=== PATIENT | male | born 1985 | race African-American/Black ===

== ENCOUNTER 2020-10-10 12:27 | Emergency (ER) | payer SELFPAY ==
[~2020-10-10] VITALS: Ht 188 cm; Wt 108.9 kg
[2020-10-10 12:41] VITALS: BP 171/103
== END 2020-10-10 13:03 | disposition left against medical advice (07) ==
LOC: ER 12:27
DX: R11.2 Nausea with vomiting, unspecified (principal); Z53.21 Procedure and treatment not carried out due to patient leaving prior to being seen by health care provider

== ENCOUNTER 2020-10-12 23:02 | Inpatient (IN) | payer MEDICAID, OTHER, SELFPAY ==
[~2020-10-12] VITALS: Ht 190.5 cm; Wt 104.2 kg
[2020-10-13 00:10] LABS: Red Cell Distribution Width 14.4 % (11.8-14.3)
[2020-10-13 00:11] LABS: Hematocrit 54.8 % (41.0-53.0); Hemoglobin 17.1 g/dL (13.5-17.5); Mean Corpuscular Hemoglobin 26.8 pg (28.0-32.0); Mean Corpuscular Hgb Conc. 31.1 g/dL (32.0-36.0); Red Blood Cells 6.38 10^6/uL (4.5-5.90)
[2020-10-13 00:18] LABS: Basophils % (manual) 0 (0.0-2.0); Blast Cells 0; Eosinophils % (manual) 0 (0-7); Metamyelocytes % 0; Myelocytes % 0; Promyelocytes % 0; Reactive Lymphocytes 0
[2020-10-13 00:26] LABS: INR 1.05 (0.9-1.15); Partial Thromboplastin Time 25.2 sec (23.6-33.0)
[2020-10-13] MEDS ORDERED: SODIUM CHLORIDE 0.9% 1,000 ML IV ONE (00:30)
[2020-10-13 00:37] LABS: Calcium 9.2 mg/dL (8.5-10.1)
[2020-10-13 00:39] LABS: Bilirubin, Total 0.4 mg/dL (0.2-1.0); Total Protein 7.4 g/dL (6.4-8.2)
[2020-10-13 00:50] LABS: BUN/Creatinine Ratio 14.9
[2020-10-13] MEDS ORDERED: InsuLIN REG 1unit/0.01ml Soln (100units/ml) ONE (01:04)
[2020-10-13 01:09] LABS: Band Neutrophils % (manual) 21; Lymphocytes % (manual) 8 (10.0-50.0); Monocytes % (manual) 10 (0-12)
[2020-10-13 01:13] LABS: Albumin 1.1 g/dL (3.4-5.0)
[2020-10-13] MEDS ORDERED: InsuLIN REG 1unit/0.01ml Soln (100units/ml) IV ONE (01:15)
[2020-10-13] MEDS ORDERED: INSULIN LANTUS (GLARGINE) 1 /0.01ml (100units/ml) SC ONE (01:30)
[2020-10-13] MEDS: ACCU-CHEK COMFORT CURVE STRIP VI SCH ×14 (01:30→22:30)
[2020-10-13] MEDS ORDERED: DEXTROSE (50%) 50ML SYRG IV PRN (01:30)
[2020-10-13] MEDS: InsuLIN R (HUMAN) 100 UNITS in SODIUM CHL 0.9% 99 ML IV SCH (01:30)
[2020-10-13 01:44] LABS: Anion Gap 29 (5-15); Blood Urea Nitrogen 47 mg/dL (7-18); Calcium 8.7 mg/dL (8.5-10.1); Chloride 114 mmol/L (98-107); GFR African American 29 mL/min; GFR Non-African American 24 mL/min; Potassium 5.2 mmol/L (3.5-5.1); Sodium 150 mmol/L (136-145)
[2020-10-13 01:49] LABS: Lactic Acid w/Reflex 4.7 mmol/L (0.4-2.0)
[2020-10-13] MEDS: SODIUM CHLORIDE 0.9% 1,000 ML IV SCH ×2 (01:50→03:30)
[2020-10-13 02:05] LABS: Carbon Dioxide 7 mmol/L (21-32); Glucose 694 mg/dL (74-106)
[2020-10-13 04:54] LABS: Urine Bacteria NONE SEEN /hpf (None Seen); Urine Blood 3+ /uL (Negative); Urine Specific Gravity 1.022 (1.001-1.035); Urine WBC 3 /hpf (0 - 3)
[2020-10-13] MEDS ORDERED: SODIUM CHLORIDE 0.9% 1,000 ML IV SCH ×2 (05:30→07:30)
[2020-10-13 06:45] LABS: Calcium 8.8 mg/dL (8.5-10.1); Potassium 4.9 mmol/L (3.5-5.1)
[2020-10-13 06:50] LABS: BUN/Creatinine Ratio 16.4
[2020-10-13] MEDS ORDERED: LACTATED RINGER'S 1,000 ML IV ONE (07:00)
[2020-10-13] MEDS ORDERED: ACETAMINOPHEN 500 MG TAB PO PRN (07:00)
[2020-10-13] MEDS ORDERED: MORPHINE SULFATE INJECTION 2 MG/ML SYRG IV PRN (07:00)
[2020-10-13] MEDS ORDERED: SODIUM BICARBONATE 8.4 % INJ 50ML VIAL IV ONE (07:00)
[2020-10-13] MEDS ORDERED: SOD CHL 0.45% 1,000 ML IV SCH ×2 (07:00→17:00)
[2020-10-13] MEDS ORDERED: NITROGLYCERIN 0.4 MG SL TAB SL PRN (07:00)
[2020-10-13] MEDS ORDERED: ALBUTEROL SULF HFA 90MCG INH 200DOSE IN PRN (07:00)
[2020-10-13] MEDS ORDERED: ONDANSETRON HCL 4 MG/2 ML VIAL IV PRN (07:00)
[2020-10-13] MEDS ORDERED: ENOXAPARIN SOD 40 MG/0.4 ML SYRINGE SC SCH (10:00)
[2020-10-13] MEDS: ASCORBIC ACID 1,000 MG TAB PO SCH ×2 (11:30→12:26)
[2020-10-13] MEDS: cefTRIAXone 1GM/50ML D5W 50 ML IV SCH (11:30)
[2020-10-13] MEDS: DexAMETHasone SOD PHOS 10MG/1ML VIAL INJ IV SCH (11:30)
[2020-10-13] MEDS: ZINC SULFATE 220mg CAP or TAB PO SCH ×2 (11:30→12:25)
[2020-10-13] MEDS: ENOXAPARIN SOD 40 MG/0.4 ML SYRINGE SC SCH (11:30)
[2020-10-13] MEDS: CHOLECALCIFEROL (VITD3) 2,000 UNIT CAP/TAB PO SCH ×2 (11:30→12:27)
[2020-10-13] MEDS: AZITHROMYCIN 500MG/ 250ML 250 ML IV SCH (12:03)
[2020-10-13] MEDS: IVERMECTIN 3 MG TAB PO SCH (12:05)
[2020-10-13] MEDS ORDERED: LORazepam 2MG/ML-1ML VIAL IV PRN ×2 (14:00→17:00)
[2020-10-13 15:00] VITALS: BP 136/84
[2020-10-13 16:00] VITALS: BP 150/91
[2020-10-13 16:01] LABS: Alcohol, Urine < 3.0 mg/dL (0-10); Amphetamine Screen, Urine NEGATIVE (NEGATIVE); Barbiturate Scree,Urine NEGATIVE (NEGATIVE); Benzodiazephine Screen, Urine NEGATIVE (NEGATIVE); Cannabinoid Screen, Urine NEGATIVE (NEGATIVE); Cocaine Screen, Urine NEGATIVE (NEGATIVE); Opiate Scree,Urine NEGATIVE (NEGATIVE); Phencyclidine Screen, Urine NEGATIVE (NEGATIVE)
[2020-10-13] MEDS ORDERED: HALOPERIDOL LACTATE 5 MG/ML INJ VIAL ONE (16:56)
[2020-10-13 17:00] VITALS: BP 152/90
[2020-10-13] MEDS ORDERED: HALOPERIDOL LACTATE 5 MG/ML INJ VIAL IM ONE (17:00)
[2020-10-13] MEDS ORDERED: FUROSEMIDE 20 MG/2 ML VIAL IV ONE (17:30)
[2020-10-13] MEDS ORDERED: TOCILIZUMAB IV ONE (18:30)
[2020-10-13] MEDS ORDERED: SODIUM CHL 0.9% IV ONE (18:30)
[2020-10-13 19:24] LABS: BUN/Creatinine Ratio 15.5; Calcium 8.9 mg/dL (8.5-10.1); Potassium 3.9 mmol/L (3.5-5.1)
[2020-10-13] MEDS ORDERED: ETOMIDATE (2MG/ML) 20ML VIAL IV ONE ×3 (21:54→22:00)
[2020-10-13] MEDS ORDERED: PROPOFOL 100 ML IV ONE (21:54)
[2020-10-13] MEDS ORDERED: SUCCINYLCHOLINE CHLORIDE 20 MG/ML 10ML VIAL IV ONE ×3 (21:54→22:00)
[2020-10-13] MEDS ORDERED: fentaNYL Drip 2500mCg/250mlNS 250 ML IV ONE (21:55)
[2020-10-13 22:00] VITALS: BP 249/147
[2020-10-13] MEDS ORDERED: PROPOFOL 100 ML IV SCH (22:00)
[2020-10-13] MEDS ORDERED: MIDAZOLAM DRIP 50 mg/50mL 50 ML IV ONE (22:09)
[2020-10-13] MEDS: fentaNYL Drip 2500mCg/250mlNS 250 ML IV SCH (22:10)
[2020-10-13] MEDS: D5W 5% 1,000 ML IV SCH (22:57)
[2020-10-13] MEDS: MIDAZOLAM DRIP 50 mg/50mL 50 ML IV SCH (23:21)
[2020-10-14] VITALS (76 sets, daily range): BP systolic 79–249; BP diastolic 46–147
[2020-10-14] MEDS ORDERED: PHENYLEPHRINE IV 250 ML IV ONE (00:18)
[2020-10-14] MEDS: PHENYLEPHRINE IV 250 ML IV SCH ×3 (00:29→09:42)
[2020-10-14] MEDS: InsuLIN R (HUMAN) 100 UNITS in SODIUM CHL 0.9% 99 ML IV SCH (01:48)
[2020-10-14] MEDS: ACCU-CHEK COMFORT CURVE STRIP VI SCH ×10 (01:50→20:28)
[2020-10-14 02:29] LABS: BUN/Creatinine Ratio 13.7; Calcium 8.4 mg/dL (8.5-10.1); Potassium 4.1 mmol/L (3.5-5.1)
[2020-10-14 02:33] LABS: Bilirubin, Total 0.2 mg/dL (0.2-1.0); Total Protein 6.2 g/dL (6.4-8.2)
[2020-10-14 03:03] LABS: Albumin 0.7 g/dL (3.4-5.0)
[2020-10-14 04:33] LABS: Hematocrit 41.3 % (41.0-53.0); Hemoglobin 13.6 g/dL (13.5-17.5); Mean Corpuscular Hemoglobin 26.9 pg (28.0-32.0); Mean Corpuscular Hgb Conc. 32.9 g/dL (32.0-36.0); Mean Corpuscular Volume 81.6 fL (80.0-100.0); Red Blood Cells 5.06 10^6/uL (4.5-5.90); White Blood Cell 14.3 10^3/uL (4.4-10.8)
[2020-10-14 04:48] LABS: Calcium 8.4 mg/dL (8.5-10.1); Potassium 4.2 mmol/L (3.5-5.1)
[2020-10-14 04:52] LABS: Basophils % (manual) 0 (0.0-2.0); Blast Cells 0; Eosinophils % (manual) 0 (0-7); Metamyelocytes % 0; Promyelocytes % 0; Reactive Lymphocytes 0
[2020-10-14 04:55] LABS: BUN/Creatinine Ratio 12.5; Bilirubin, Total 0.2 mg/dL (0.2-1.0); Total Protein 6.2 g/dL (6.4-8.2)
[2020-10-14 05:29] LABS: Albumin 0.7 g/dL (3.4-5.0)
[2020-10-14 05:39] LABS: Band Neutrophils % (manual) 51; Lymphocytes % (manual) 10 (10.0-50.0); Monocytes % (manual) 3 (0-12); Myelocytes % 2
[2020-10-14] MEDS ORDERED: ALBUMIN 25% 100 ML IV ONE (05:45)
[2020-10-14] MEDS: MIDAZOLAM DRIP 50 mg/50mL 50 ML IV SCH ×4 (06:54→20:14)
[2020-10-14] MEDS ORDERED: INSULIN LANTUS (GLARGINE) 1 /0.01ml (100units/ml) SC SCH (10:00)
[2020-10-14] MEDS: D5W 5% 1,000 ML IV SCH (10:35)
[2020-10-14] MEDS ORDERED: SOD CHL 0.45% 1,000 ML IV SCH (10:45)
[2020-10-14] MEDS: cefTRIAXone 1GM/50ML D5W 50 ML IV SCH (10:56)
[2020-10-14] MEDS: DexAMETHasone SOD PHOS 10MG/1ML VIAL INJ IV SCH (10:59)
[2020-10-14] MEDS: fentaNYL Drip 2500mCg/250mlNS 250 ML IV SCH ×2 (11:15→23:04)
[2020-10-14] MEDS: AZITHROMYCIN 500MG/ 250ML 250 ML IV SCH (12:30)
[2020-10-14] MEDS ORDERED: INSULIN LANTUS (GLARGINE) 1 /0.01ml (100units/ml) SC ONE (12:45)
[2020-10-14] MEDS ORDERED: DEXTROSE (50%) 50ML SYRG IV PRN (12:45)
[2020-10-14] MEDS: InsuLIN REG 1unit/0.01ml Soln (100units/ml) SC SCH ×2 (15:58→20:29)
[2020-10-14] MEDS: DOPamine 1600MCG/ML D5W 250 ML IV SCH (17:00)
[2020-10-14 17:12] LABS: BUN/Creatinine Ratio 12.4; Calcium 8.3 mg/dL (8.5-10.1); Potassium 4.5 mmol/L (3.5-5.1)
[2020-10-14] MEDS: IVERMECTIN 3 MG TAB PO SCH (17:14)
[2020-10-14] MEDS: ENOXAPARIN SOD 40 MG/0.4 ML SYRINGE SC SCH (17:14)
[2020-10-14] MEDS: FREE WATER NG SCH ×2 (18:01→23:07)
[2020-10-14] MEDS: ALBUMIN 25% 100 ML IV SCH (18:34)
[2020-10-14 19:35] LABS: Alanine Aminotransferase 28 U/L (16-61); Albumin 1.5 g/dL (3.4-5.0); Anion Gap 9 (5-15); Aspartate Aminotransferase 54 U/L (15-37); BUN/Creatinine Ratio 12.5; Blood Urea Nitrogen 65 mg/dL (7-18); Calcium 7.6 mg/dL (8.5-10.1); Carbon Dioxide 16 mmol/L (21-32); Chloride 129 mmol/L (98-107); GFR African American 16 mL/min; GFR Non-African American 13 mL/min; Glucose 341 mg/dL (74-106); Potassium 4.7 mmol/L (3.5-5.1); Sodium 154 mmol/L (136-145)
[2020-10-14 19:38] LABS: Alkaline Phosphatase 83 U/L (45-117); Bilirubin, Total 0.2 mg/dL (0.2-1.0)
[2020-10-14] MEDS: SODIUM BICARBONATE 50ML VIAL 50 ML in D5W 5% 1,000 ML IV SCH (20:14)
[2020-10-14] MEDS: SODIUM CHLOR 0.9% PF (SALINE LOCK) 10ML VIAL/SYR IV SCH (23:07)
[2020-10-15] VITALS (100 sets, daily range): BP systolic 103–146; BP diastolic 66–92
[2020-10-15] MEDS: ACCU-CHEK COMFORT CURVE STRIP VI SCH ×9 (00:06→23:58)
[2020-10-15] MEDS: InsuLIN REG 1unit/0.01ml Soln (100units/ml) SC SCH ×5 (00:07→15:13)
[2020-10-15] MEDS ORDERED: DEXTROSE (50%) 50ML SYRG IV PRN ×2 (00:15→18:15)
[2020-10-15] MEDS: FREE WATER NG SCH ×6 (02:00→21:28)
[2020-10-15] MEDS: ALBUMIN 25% 100 ML IV SCH ×2 (02:00→10:30)
[2020-10-15 02:16] LABS: Basophils # (auto) 0.1 10 ^3/uL (0-0.2); Basophils % (auto) 0.7 % (0.0-2.0); Eosinophils # (auto) 0 10 ^3/uL (0-0.8); Hematocrit 38.5 % (41.0-53.0); Hemoglobin 12.7 g/dL (13.5-17.5); Lymphocytes # (auto) 0.5 10 ^3/uL (0.4-5.4); Lymphocytes % (auto) 4.7 % (10.0-50.0); Mean Corpuscular Hemoglobin 27.6 pg (28.0-32.0); Mean Corpuscular Volume 83.7 fL (80.0-100.0); Monocytes # (auto) 0.3 10 ^3/uL (0-1.3); Monocytes % (auto) 2.6 % (0.0-12.0); Neutrophils # (auto) 9.6 10 ^3/uL (1.6-8.6); Nucleated Red Blood Cells % 0.2 %; Red Blood Cells 4.59 10^6/uL (4.5-5.90); Red Cell Distribution Width 14.8 % (11.8-14.3); White Blood Cell 10.5 10^3/uL (4.4-10.8)
[2020-10-15 02:19] LABS: Potassium 5.2 mmol/L (3.5-5.1)
[2020-10-15 02:25] LABS: Albumin 1.7 g/dL (3.4-5.0); BUN/Creatinine Ratio 14.1; Bilirubin, Total 0.4 mg/dL (0.2-1.0); Calcium 6.9 mg/dL (8.5-10.1); Total Protein 5.8 g/dL (6.4-8.2)
[2020-10-15] MEDS: SODIUM BICARBONATE 50ML VIAL 50 ML in D5W 5% 1,000 ML IV SCH ×4 (04:47→21:30)
[2020-10-15] MEDS: PHENYLEPHRINE IV 250 ML IV SCH ×3 (04:49→17:31)
[2020-10-15] MEDS: MIDAZOLAM DRIP 50 mg/50mL 50 ML IV SCH (04:55)
[2020-10-15 08:45] LABS: Albumin 2.4 g/dL (3.4-5.0); Calcium 7.6 mg/dL (8.5-10.1); Potassium 4.6 mmol/L (3.5-5.1)
[2020-10-15 08:48] LABS: Bilirubin, Total 0.3 mg/dL (0.2-1.0); Total Protein 6.7 g/dL (6.4-8.2)
[2020-10-15] MEDS: cefTRIAXone 1GM/50ML D5W 50 ML IV SCH (08:54)
[2020-10-15 08:56] LABS: BUN/Creatinine Ratio 13.4
[2020-10-15] MEDS ORDERED: INSULIN LANTUS (GLARGINE) 1 /0.01ml (100units/ml) SC SCH ×3 (09:45→22:00)
[2020-10-15] MEDS: AZITHROMYCIN 500MG/ 250ML 250 ML IV SCH (10:32)
[2020-10-15] MEDS: DexAMETHasone SOD PHOS 10MG/1ML VIAL INJ IV SCH (10:32)
[2020-10-15] MEDS: SODIUM CHLOR 0.9% PF (SALINE LOCK) 10ML VIAL/SYR IV SCH ×2 (10:32→21:28)
[2020-10-15] MEDS: ZINC SULFATE 220mg CAP or TAB PO SCH (10:32)
[2020-10-15] MEDS: ASCORBIC ACID 1,000 MG TAB PO SCH (10:33)
[2020-10-15] MEDS: IVERMECTIN 3 MG TAB PO SCH (10:33)
[2020-10-15] MEDS: CHOLECALCIFEROL (VITD3) 2,000 UNIT CAP/TAB PO SCH (10:33)
[2020-10-15] MEDS: ENOXAPARIN SOD 40 MG/0.4 ML SYRINGE SC SCH (10:34)
[2020-10-15] MEDS ORDERED: PROPOFOL 100 ML IV SCH (12:15)
[2020-10-15] MEDS ORDERED: NOREPINEPHRINE 8 MG/250ML KIT 250 ML IV SCH (12:15)
[2020-10-15] MEDS ORDERED: PROPOFOL 100 ML IV ONE (12:20)
[2020-10-15] MEDS: DOPamine 1600MCG/ML D5W 250 ML IV SCH (17:00)
[2020-10-15] MEDS ORDERED: InsuLIN R (HUMAN) 100 UNITS in SODIUM CHL 0.9% 99 ML IV SCH ×2 (18:15→21:45)
[2020-10-15 19:40] LABS: Protein, Urine 270.5 mg/dL (0.0-11.9)
[2020-10-16] VITALS (46 sets, daily range): BP systolic 54–243; BP diastolic 27–129
[2020-10-16] MEDS: ACCU-CHEK COMFORT CURVE STRIP VI SCH ×5 (01:43→08:46)
[2020-10-16] MEDS: FREE WATER NG SCH ×2 (01:44→05:57)
[2020-10-16] MEDS: PHENYLEPHRINE IV 250 ML IV SCH (02:15)
[2020-10-16] MEDS ORDERED: ROCURONIUM BROMIDE 1,000 MG in D5W 5% 150 ML IV SCH (03:45)
[2020-10-16 04:19] LABS: Basophils # (auto) 0 10 ^3/uL (0-0.2); Eosinophils # (auto) 0 10 ^3/uL (0-0.8); Hemoglobin 12.6 g/dL (13.5-17.5); Lymphocytes # (auto) 0.4 10 ^3/uL (0.4-5.4); Mean Corpuscular Volume 80.4 fL (80.0-100.0); Monocytes # (auto) 0.1 10 ^3/uL (0-1.3)
[2020-10-16 04:21] LABS: Basophils % (auto) 0.4 % (0.0-2.0); Hematocrit 37.5 % (41.0-53.0); Lymphocytes % (auto) 5.2 % (10.0-50.0); Mean Corpuscular Hemoglobin 26.9 pg (28.0-32.0); Mean Corpuscular Hgb Conc. 33.5 g/dL (32.0-36.0); Monocytes % (auto) 1.6 % (0.0-12.0); Neutrophils # (auto) 6.3 10 ^3/uL (1.6-8.6); Neutrophils % (auto) 92.8 % (37.0-80.0); Nucleated Red Blood Cells % 0.4 %; Red Blood Cells 4.67 10^6/uL (4.5-5.90); Red Cell Distribution Width 13.5 % (11.8-14.3); White Blood Cell 6.8 10^3/uL (4.4-10.8)
[2020-10-16] MEDS: SODIUM BICARBONATE 50ML VIAL 50 ML in D5W 5% 1,000 ML IV SCH (04:34)
[2020-10-16 04:38] LABS: BUN/Creatinine Ratio 13.4; Calcium 7.2 mg/dL (8.5-10.1); Potassium 4.2 mmol/L (3.5-5.1)
[2020-10-16] MEDS: ALBUTEROL SULF 2.5 MG/0.5ML(0.5%) NEB SOLN NEB PRN ×2 (06:07→13:04)
[2020-10-16] MEDS: fentaNYL Drip 2500mCg/250mlNS 250 ML IV SCH (06:51)
[2020-10-16] MEDS ORDERED: SODIUM BICARBONATE 8.4% INJ 50ML SYRINGE IV ONE (16:54)
[2020-10-16] MEDS ORDERED: EPINEPHrine HCL 1 MG/10 ML SYRG IV ONE (16:54)
== END 2020-10-16 16:55 | DRG 720 ==
LOC: EDBD 23:02 → ER 23:08 → TELE 10-13 06:49 → ICU WEST 10-14 03:41
PROVIDERS: ADMIT Nurse Practitioner; ATTEND Internal Medicine Pulmonary Disease
PROC: 5A1945Z Respiratory Ventilation, 24-96 Consecutive Hours (ICD-10-PCS; principal; 2020-10-13)
PROC: 0BH17EZ Insertion of Endotracheal Airway into Trachea, Via Natural or Artificial Opening (ICD-10-PCS; 2020-10-13)
PROC: XW033H5 Introduction of Tocilizumab into Peripheral Vein, Percutaneous Approach, New Technology Group 5 (ICD-10-PCS; 2020-10-13)
PROC: 5A12012 Performance of Cardiac Output, Single, Manual (ICD-10-PCS; 2020-10-16)
DX: A41.89 Other specified sepsis (principal); J96.01 Acute respiratory failure with hypoxia; J12.82 Pneumonia due to coronavirus disease 2019; N17.0 Acute kidney failure with tubular necrosis; U07.1 COVID-19; E11.10 Type 2 diabetes mellitus with ketoacidosis without coma; G93.41 Metabolic encephalopathy; E87.0 Hyperosmolality and hypernatremia; G93.1 Anoxic brain damage, not elsewhere classified; I46.9 Cardiac arrest, cause unspecified; Z66 Do not resuscitate; D89.839 Cytokine release syndrome, grade unspecified; E86.0 Dehydration; E66.9 Obesity, unspecified; E11.22 Type 2 diabetes mellitus with diabetic chronic kidney disease; Z68.26 Body mass index [BMI] 26.0-26.9, adult; E88.09 Other disorders of plasma-protein metabolism, not elsewhere classified; F41.0 Panic disorder [episodic paroxysmal anxiety]; I12.9 Hypertensive chronic kidney disease with stage 1 through stage 4 chronic kidney disease, or unspecified chronic kidney disease; N18.9 Chronic kidney disease, unspecified; Z78.1 Physical restraint status; Z82.49 Family history of ischemic heart disease and other diseases of the circulatory system; Z83.3 Family history of diabetes mellitus
CPT/HCPCS: 36415; 36569; 36600; 70450; 71045; 76775; 80048; 80053; 80307; 81001; 82010; 82570; 82728; 82805; 82962; 83036; 83605; 83735; 83930; 84156; 84295; 84300; 84484; 85007; 85025; 85027; 85379; 85610; 85730; 86141; 87040; 87070; 87077; 87081; 87186; 87205; 87426; 92950; 93005; 93970; 94002; 94003; 96361; 96365; 96372; 96375; 99291; G0378; J0330; J0696; J1100; J1815; J2250; J2405; J2704; J7060; P9047